=== PATIENT | male | born 1990 | race Two or more races ===

== ENCOUNTER 2017-03-29 08:51 | Emergency (ER) | payer OTHER ==
[2017-03-29 09:04] VITALS: BP 144/91
[2017-03-29] MEDS ORDERED: Lidocaine 1% with EPINEPHrine 1:100,000 20 ML MDV INJECT ONE (09:08)
--- NOTE | 2017-03-29 09:12 | EDM.PDOC ---
ED HPI Skin/Rash - General Chief Complaint: Laceration Stated Complaint: R LEG LACERATION Time Seen by Provider: 03/29/17 09:02 Source: Reports: Patient History Limitations: Reports: No limitations - History of Present Illness INITIAL COMMENTS - FREE TEXT/NARRATIVE: The patient cut his right distal anterior thigh with a knife. He was cutting some fiber optic cable and cut it. His tetanus is up to date. He had it 3 years ago in [place]. Timing: Reports: still present Location, Skin: Reports: upper extremity, right (distal, anterior thight) Quality: Reports: Sharp Severity: mild Associated Symptoms: Reports: no other symptoms - Related Data Allergies Allergy/AdvReac Type Severity Reaction Status Date / Time No Known Allergies Allergy Verified 03/29/17 09:04 Home Meds: Ambulatory Orders Medication Instructions Recorded Confirmed . [No Known Home Meds] 03/29/17 03/29/17 Past Medical History - Past Health History Medical/Surgical History: Denies Medical/Surgical History Social & Family History - Tobacco Use Smoking Status *Q: Current Every Day Smoker Years of Tobacco use: 2 Packs/Tins Daily: 0.5 - Recreational Drug Use Recreational Drug Use: No ED ROS GENERAL - Review of Systems Review Of Systems: See Below Constitutional: Reports: no symptoms HEENT: Reports: No symptoms Respiratory: Reports: No Symptoms Cardiovascular: Reports: No symptoms Endocrine: Reports: no symptoms GI/Abdominal: Reports: No symptoms : Reports: no symptoms Musculoskeletal: Reports: other (3.5cm laceration to right thigh) ED EXAM, SKIN/RASH Exam: See Below Exam Limited By: No limitations General Appearance: alert, no apparent distress Ears: normal external exam, hearing loss Head: atraumatic, normocephalic Neck: normal inspection Respiratory/Chest: no respiratory distress Extremities: other (3.5cm laceration to the right, anterior, distal thigh) ED SKIN PROCEDURES - Laceration/Wound Repair Right Thigh Lac/wound length in cm: 3.5 Appearance: subcutaneous, linear Distal NVT: neuro & vascular intact, no tendon injury Anesthetic type: local Local anesthesia - Lidocaine (Xylocaine): 1% with epi Skin prep: saline Exploration/Debridement/Repair: wound explored, in a bloodless field, explored to base Closed with: sutures Suture size: 3-0 # of sutures: 5 Suture type: nylon, interrupted, simple Suture size: 3-0 # of sutures: 1 Repaired with: vicryl Tetanus status addressed: Yes Complications: No Course - Vital Signs Last Recorded V/S: Last Vital Signs Temp 97.6 F 03/29/17 09:01 Pulse 69 03/29/17 09:01 Resp 16 03/29/17 09:01 BP 144/91 H 03/29/17 09:01 Pulse Ox 99 03/29/17 09:01 - Orders/Labs/Meds Meds: Medications Discontinued Medications Generic Name Dose Route Start Last Admin Trade Name Marlon PRN Reason Stop Dose Admin Lidocaine/Epinephrine 20 ml 03/29/17 09:08 03/29/17 09:16 Xylocaine 1% With Epinephrine 1:100,000 INJECT 03/29/17 09:09 20 ml ONETIME ONE Administration Departure - Departure Time of Disposition: 09:35 Disposition: Home, Self-Care 01 Condition: good Clinical Impression: Laceration of right thigh Qualifiers: Encounter type: initial encounter Qualified Code(s): S71.111A - Laceration without foreign body, right thigh, initial encounter Forms: ED Department Discharge Additional Instructions: Wash the sutures with warm soapy water 2 times per day and apply antibiotic ointment after. Have the sutures removed in 1 week. You can have that done here or any other clinic in [facility]. Look for any signs of infection such as redness, swelling, pain, or drainage. Please return if you have any of these signs or symptoms.
== END 2017-03-29 09:42 | disposition home or self-care (01) ==
LOC: JD.ED 08:51
DX: S71.111A Laceration without foreign body, right thigh, initial encounter (principal); F17.210 Nicotine dependence, cigarettes, uncomplicated; W26.0XXA Contact with knife, initial encounter
CPT/HCPCS: 12002; 12032; 99282; 99283-25